=== PATIENT | female | born 1985 | race Caucasian/White ===

== ENCOUNTER 2021-07-12 15:56 | Emergency (ER) | payer OTHER, MEDICAID ==
[~2021-07-12] VITALS: Ht 172.7 cm; Wt 77.1 kg
[2021-07-12 17:21] VITALS: BP 125/88
== END 2021-07-12 17:23 | disposition home or self-care (01) ==
LOC: M.ERS 15:56
DX: U07.1 COVID-19 (principal); Z88.0 Allergy status to penicillin